=== PATIENT | female | born 1945 | race Caucasian/White ===

== ENCOUNTER 2018-04-20 17:08 | Emergency (ER) | payer MEDICARE, OTHER ==
[2018-04-20 17:21] VITALS: BP 127/71
--- NOTE | 2018-04-20 18:13 | UC ---
Hand/Wrist HPI - HPI Summary HPI Summary: CLOSED LEFT 3RD FINGER IN A DOOR LAST NIGHT. HAS PAIN AND SWELLING DISTALLY. - History Of Current Complaint Chief Complaint: UCUpperExtremity Stated Complaint: FINGER INJURY Time Seen by Provider: 04/20/18 17:51 Hx Obtained From: Patient Hx Last Menstrual Period: na Onset/Duration: Sudden Onset, Lasting Hours, Still Present Severity Initially: Moderate Severity Currently: Moderate Pain Intensity: 5 Pain Scale Used: 0-10 Numeric Character Of Pain: Aching, Throbbing Aggravating Factor(s): Movement Alleviating Factor(s): Rest Associated Signs And Symptoms: Positive: Swelling, Bruising Related History: Dominant Hand Right - Allergies/Home Medications Allergies/Adverse Reactions: Allergies Allergy/AdvReac Type Severity Reaction Status Date / Time No Known Allergies Allergy Verified 04/20/18 17:21 Home Medications: Home Medications Metoprolol Succinate mg PO BID 04/20/18 [History] Rivaroxaban TAB(*) [Xarelto 20 mg] 20 mg PO DAILY 04/20/18 [History Confirmed ] PMH/Surg Hx/FS Hx/Imm Hx Cardiovascular History: Atrial Fibrillation - Surgical History Surgical History: None Surgery Procedure, Year, and Place: cataracts - Family History Known Family History: Negative: Hypertension - Social History Alcohol Use: None Substance Use Type: None Smoking Status (MU): Never Smoked Tobacco Review of Systems Constitutional: Negative Skin: Bruising Respiratory: Negative Cardiovascular: Negative Gastrointestinal: Negative Musculoskeletal: Arthralgia, Decreased ROM, Edema All Other Systems Reviewed And Are Negative: Yes Physical Exam Triage Information Reviewed: Yes Appearance: Well-Appearing, No Pain Distress, Well-Nourished Vital Signs: Initial Vital Signs Temp 97.3 F 04/20/18 17:17 Pulse 96 04/20/18 17:17 Resp 18 04/20/18 17:17 BP 127/71 04/20/18 17:17 Pulse Ox 98 04/20/18 17:17 Vital Signs Reviewed: Yes Eyes: Positive: Conjunctiva Clear ENT: Positive: Hearing grossly normal Neck: Positive: Supple Respiratory: Positive: No respiratory distress, No accessory muscle use Cardiovascular: Positive: Pulses Normal Abdomen Description: Positive: Soft Musculoskeletal: Positive: ROM Limited @ - LEFT 3RD FINGER, Edema @ - DISTAL LEFT 3RD FINGER Neurological: Positive: Alert Psychological: Positive: Age Appropriate Behavior Skin: Positive: Other - BRUISING DISTAL LEFT 3RD FINGER. SMALL SUBUNGUAL HEMATOMA Diagnostics - Radiology LEFT 3RD FINGER XRAY Xray Interpretation: Positive (See Comments) - Nondisplaced fracture tuft of distal phalanx with overlying soft tissue swelling. Negative for dislocation. 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 Radiology Interpretation Completed By: Radiologist Hand/Wrist Course/Dx - Course Course Of Treatment: PT DECLINES SPLINT. ADVISED ORTHO F/U. TYLENOL FOR DISCOMFORT - Differential Dx/Diagnosis Provider Diagnoses: Nondisplaced fracture tuft of distal phalanx - LEFT 3RD FINGER Discharge - Sign-Out/Discharge Documenting (check all that apply): Patient Departure - Discharge Plan Condition: Stable Disposition: HOME Patient Education Materials: Finger Fracture (ED) Referrals: Vinayak Verdin MD [Primary Care Provider] - If Needed Dharmesh Mckenzie MD [Medical Doctor] - 2 Weeks Additional Instructions: Your x-ray today is positive for a tuft fracture of the left third finger. Protect it from further trauma. Follow-up with your PCP or orthopedics in the next 1-2 weeks. OTC Tylenol as needed for discomfort. - Billing Disposition and Condition Condition: STABLE Disposition: Home
--- NOTE | 2018-04-20 18:22 | RAD ---
Indication: Crush injury LEFT third finger. Pain, bruising, swelling. Comparison: No relevant prior exams available on the [facility] for comparison. Technique: 3 views LEFT third finger. REPORT AND IMPRESSION: #. Nondisplaced fracture tuft of distal phalanx with overlying soft tissue swelling. Negative for dislocation. 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
== END 2018-04-20 18:45 | disposition home or self-care (01) ==
LOC: UCEAST 17:08
DX: S62.663A Nondisplaced fracture of distal phalanx of left middle finger, initial encounter for closed fracture (principal); W23.0XXA Caught, crushed, jammed, or pinched between moving objects, initial encounter; Y92.9 Unspecified place or not applicable
CPT/HCPCS: 73140; 99201; G0463

== ENCOUNTER → 2019-08-16 09:52 | Day surgery (SDC) | payer MEDICARE, OTHER ==
[~2019-08-16 09:52] MED LIST: Acetaminophen TAB* 325 MG ONE; Buffered Lidocaine 1% SYRIN* 1 ML/SYRINGE INTRADERM ONE; Bupivacaine 0.25% SDV PF* 10 ML VIAL INJ ONE; Lactated Ringers 1000 ML Bag* 1,000 ML IV SCH; Lidocaine 1% INJ* 10 MG/ML 30 ML SDV ONE; Lidocaine 1% w EPI 1:200,000* SDV 30 ML VIAL ONE; Metoprolol Tartrate IV* 1 MG/ML 5 ML VIAL ONE; Midazolam* 1 MG/ML 2 ML VIAL (2 MG) ONE; Naloxone* 0.4 MG/ML 1 ML VIAL IV PRN; Propofol* 10 MG/ML 20 ML BTL ONE; ceFAZolin 2 GM in NS PREMIX(*) 2 GM/100 ML BAG IVPB ONE; fentaNYL* 50 MCG/ML 2 ML VIAL (100 MCG VIAL) ONE
[2019-08-16 13:55] VITALS: BP 140/79
--- NOTE | 2019-08-16 20:17 | OP ---
CC: Dr. Vinayak Verdin; [facility] * DATE OF OPERATION: 08/16/19 - [facility] DATE OF : 43 SURGEON: Obed Ambrocio MD IT HELP DESK MANAGER: Kimberli Arredondo NP ANESTHESIOLOGIST: Dr. Wahl. ANESTHESIA: Local MAC anesthesia. PRE-OP DIAGNOSIS: Left inguinal hernia. POST-OP DIAGNOSIS: Left inguinal hernia. OPERATIVE PROCEDURE: Open left inguinal hernia repair with mesh. ESTIMATED BLOOD LOSS: Minimal. FLUIDS: Minimal crystalloid fluid given. SPECIMEN: Hernia sac. COUNTS: Lap pad count and instrument count correct at the end of the procedure. DRAINS: None. INDICATIONS: The patient was identified in the preoperative area. She was marked appropriately and consent was signed. DESCRIPTION OF PROCEDURE: She was taken to the operating room and placed on the operating table in supine position. Preoperative antibiotics were given. Sequential devices were placed on bilateral lower extremities. General sedation was given. The patient's left groin was prepped and draped in the standard surgical fashion. A time-out was performed. An inguinal incision was made. This was deepened down through the Frank's and Camper fascia right down to the external oblique aponeurosis. This was cleaned off and incised and flaps were made both cephalad and caudad and the structures isolated, which included hernia sac and round ligament. The hernia sac was dissected free from ligament. This was ligated and it retracted back into the internal ring. Next, a medium sized left-sided ProGrip mesh was utilized. This was placed appropriately into the space. It should be noted that after looking it, there was no evidence of any femoral hernia and this was all an indirect hernia. However, the mesh was placed in the appropriate fashion covering both direct, indirect and femoral spaces. It was tacked to the pubic tubercle. The other spots had adhered down to the floor of the inguinal canal. We then removed the Adán drain that was around the round ligament. I did not ligate this as I felt we had a good repair. Ilioinguinal nerve superiorly had been isolated and we did not ligate this as well to stay above the mesh. The aponeurosis external oblique was reapproximated with a running 2-0 Vicryl suture and then we closed the skin incision with 3-0 Vicryl at the Frank fascia and subcutaneous followed by a 4-0 Monocryl subcuticular sutures. Steri- Strips and sterile dressing were applied. The patient tolerated the procedure well, was transferred to the PACU in stable condition. [id number]/[facility] #: [id number] MICHELL
== END | disposition home or self-care (01) ==
LOC: OR 09:52
PROVIDERS: ATTEND Surgery
DX: K40.90 Unilateral inguinal hernia, without obstruction or gangrene, not specified as recurrent (principal); I48.91 Unspecified atrial fibrillation; M19.90 Unspecified osteoarthritis, unspecified site; Z79.01 Long term (current) use of anticoagulants; I73.9 Peripheral vascular disease, unspecified
CPT/HCPCS: 88302; A9270-GY; C1781; J0690; J2001; J2250; J2704; J3010; J3490